=== PATIENT | male | born 1955 | race Two or more races ===

== ENCOUNTER 2018-06-19 17:51 | Inpatient (IN) | payer MEDICAID ==
[~2018-06-19] VITALS: Ht 177.8 cm; Wt 69.9 kg
[~2018-06-19 17:51] MED LIST: ASPI-1159 PO; ATOR20TA65 PO; CARV3.1242 PO; FURO-151 PO; LISI10TA5 PO; NICO-645 TD; TAMS-11 PO
[2018-06-19 18:54] LABS: CHLORIDE 106 mEq/L (98-107)
[2018-06-19 19:00] LABS: BASOPHILS % 0.8 % (0.0-2.0); EOSINOPHILS % 0.5 % (0.0-5.0); HEMATOCRIT. 43.6 % (42.0-52.0); LYMPHOCYTES % 30.8 % (20.0-50.0); MEAN CORPUSCULAR HEMOGLOBIN 27.6 pg (28.0-32.0); MEAN CORPUSCULAR VOLUME 85.9 fL (80.0-94.0); MEAN PLATELET VOLUME 9.3 fl (7.4-10.4); NEUTROPHILS % 58.9 % (40.0-76.0); PLATELET 229 x1000/uL (130-400); RED BLOOD CELL COUNT 5.08 mill/uL (4.7-6.1); RED CELL DISTRIBUTION WIDTH 15.8 % (11.6-14.6)
[2018-06-19 19:09] LABS: CLARITY URINE CLEAR (CLEAR); COLOR URINE YELLOW (YELLOW); KETONES URINE NEGATIVE (NEGATIVE); LEUKOCYTE ESTERASE URINE 3+ (NEGATIVE); NITRITE URINE NEGATIVE (NEGATIVE); OCCULT BLOOD URINE NEGATIVE (NEGATIVE); PH URINE 6.5 (4.5-8.0); PROTEIN URINE NEGATIVE (NEGATIVE); SPECIFIC GRAVITY URINE 1.008 (1.005-1.030)
[2018-06-19] MEDS ORDERED: NITROGLYCERIN 0.4MG TABLET SL SL ONE (21:00)
[2018-06-19] MEDS ORDERED: CEFTRIAXONE 1 G PREMIX 50 ML IV ONE (22:30)
[2018-06-19] MEDS ORDERED: ACETAMINOPHEN 325MG TABLET PO PRN (23:30)
[2018-06-19] MEDS ORDERED: HYDROCODONE/ACETAMINOPHEN 5/325MG TABLET PO PRN (23:30)
[2018-06-19] MEDS ORDERED: CLONIDINE 0.1MG TABLET PO PRN (23:30)
[2018-06-19] MEDS ORDERED: ONDANSETRON HCL 4MG/2ML INJ IV PRN (23:30)
[2018-06-19] MEDS ORDERED: IPRATROPIUM/ALBUTEROL 0.5-3(2.5)MG/3ML NEB INH PRN (23:30)
[2018-06-19] MEDS ORDERED: DOCUSATE SODIUM 100MG CAPSULE PO PRN (23:30)
[2018-06-20] VITALS (8 sets, daily range): BP systolic 101–143; BP diastolic 68–109
[2018-06-20 06:20] LABS: BASOPHILS % 0.6 % (0.0-2.0); EOSINOPHILS % 0.6 % (0.0-5.0); HEMATOCRIT. 40.6 % (42.0-52.0); HEMOGLOBIN. 12.9 g/dL (14.0-18.0); LYMPHOCYTES % 23.3 % (20.0-50.0); MEAN CORPUSCULAR HEMOGLOBIN 27.2 pg (28.0-32.0); MEAN CORPUSCULAR VOLUME 85.7 fL (80.0-94.0); MEAN PLATELET VOLUME 9.6 fl (7.4-10.4); MONOCYTES % 13.7 % (2.0-8.0); NEUTROPHILS % 61.8 % (40.0-76.0); PLATELET 222 x1000/uL (130-400); RED BLOOD CELL COUNT 4.74 mill/uL (4.7-6.1); RED CELL DISTRIBUTION WIDTH 15.5 % (11.6-14.6)
[2018-06-20 07:38] LABS: BG CARBOXYHEMOGLOBIN 1.2 % (0.5-1.5); BG DEOXYHEMOGLOBIN 7.4 % (0.0-5.0); BG FRACTION INSPIRED OXYGEN 21; BG METHEMOGLOBIN 0.3 % (0.0-1.5); BG OXYGEN SATURATION 92.5 % (92.0-98.5); BG OXYHEMOGLOBIN 91.1 % (94.0-97.0); BG PO2 67.1 mmHg (75.0-100.0); BG SAMPLE SITE RIGHT BRACHIAL; BG TOTAL HEMOGLOBIN 14.3 g/dL (12.0-18.0); BG VENT MODE ROOM AIR
[2018-06-20] MEDS ORDERED: PNEUMOCOCCAL 23-VAL P-SAC VAC 0.5 ML IM ONE (08:00)
[2018-06-20] MEDS ORDERED: HEPARIN 5000 UNITS/ML VIAL SUBCUT SCH (09:00)
[2018-06-20] MEDS ORDERED: CEFTRIAXONE 1 G PREMIX 50 ML IV SCH (09:00)
[2018-06-20 09:24] LABS: BG BASE EXCESS -0.3 mmol/L (-2.0-2.0); BG CARBOXYHEMOGLOBIN 1.2 % (0.5-1.5); BG DEOXYHEMOGLOBIN 9.6 % (0.0-5.0); BG FRACTION INSPIRED OXYGEN 21; BG HCO3 ACT 22.7 mmol/L (22.0-26.0); BG METHEMOGLOBIN 0.3 % (0.0-1.5); BG OXYGEN SATURATION 90.3 % (92.0-98.5); BG OXYHEMOGLOBIN 88.9 % (94.0-97.0); BG PCO2 32.4 mmHg (35.0-45.0); BG PH 7.463 (7.350-7.450); BG PO2 58.1 mmHg (75.0-100.0); BG SAMPLE SITE RIGHT RADIAL; BG TOTAL HEMOGLOBIN 13.8 g/dL (12.0-18.0); BG VENT MODE ROOM AIR
[2018-06-20] MEDS: ASPIRIN 81MG EC TABLET PO SCH (09:48)
[2018-06-20] MEDS ORDERED: INFLUENZA VIRUS VACCINE(AFLURIA) 0.5ML SYR IM ONE (10:00)
[2018-06-20] MEDS ORDERED: FUROSEMIDE 40MG/4ML VIAL IVP SCH (11:00)
[2018-06-20] MEDS ORDERED: LISINOPRIL 10MG TABLET PO SCH (11:00)
[2018-06-20] MEDS ORDERED: LOSARTAN POTASSIUM 25 MG TABLET PO SCH (12:00)
[2018-06-20] MEDS ORDERED: DILTIAZEM HCL 5MG/ML 5ML VIAL IV PRN (12:00)
[2018-06-20] MEDS ORDERED: CEFTRIAXONE 1,000 MG in DEXTROSE 5% WATER 50 ML IV SCH (12:00)
[2018-06-20] MEDS: DILTIAZEM HCL 60MG TABLET PO SCH ×2 (12:00→17:27)
[2018-06-20] MEDS: FOLIC ACID/VITAMIN B COMP W-C TABLET PO SCH (12:52)
[2018-06-20] MEDS: POTASSIUM CHLORIDE 20MEQ TABLET SR PO SCH ×2 (12:53→17:27)
[2018-06-20] MEDS: TAMSULOSIN HCL 0.4MG SR CAPSULE PO SCH (12:53)
[2018-06-20] MEDS: THIAMINE HCL 100MG TABLET PO SCH (12:55)
[2018-06-20] MEDS: ASPIRIN 81MG TABLET PO SCH (13:47)
[2018-06-20] MEDS: ENOXAPARIN 80MG/0.8ML SYR SUBCUT SCH ×2 (13:48→22:48)
[2018-06-20] MEDS ORDERED: LIDOCAINE HCL/PF 1% 2ML VIAL ONE (14:39)
[2018-06-20] MEDS: FUROSEMIDE 40MG/4ML VIAL IVP SCH (17:26)
[2018-06-20 18:47] LABS: *AMPHETAMINES SCREEN URINE PRESUMTIVE POSITIVE (NEGATIVE); *BARBITURATES SCREEN URINE NEGATIVE (NEGATIVE)
[2018-06-20 18:48] LABS: *BENZODIAZEPINES SCREEN URINE NEGATIVE (NEGATIVE); *COCAINE SCREEN URINE PRESUMTIVE POSITIVE (NEGATIVE); CANNABINOID URINE SCREEN PRESUMTIVE POSITIVE (NEGATIVE); METHADONE URINE SCREEN NEGATIVE (NEGATIVE); OPIATES URINE SCREEN NEGATIVE (NEGATIVE)
[2018-06-20 18:49] LABS: PHENCYCLIDINE URINE SCREEN NEGATIVE (NEGATIVE)
[2018-06-20] MEDS: ATORVASTATIN CALCIUM 20MG TABLET PO SCH (21:05)
[2018-06-20] MEDS: CEFTRIAXONE 1,000 MG in DEXTROSE 5% WATER 50 ML IV SCH (21:06)
[2018-06-20 21:43] LABS: INR 1.2; PROTHROMBIN TIME 12.1 sec (9.1-11.1)
[2018-06-20 21:53] LABS: TOTAL IRON BINDING CAPACITY 345 ug/dL (250-450)
[2018-06-20 22:09] LABS: FERRITIN 310 ng/mL (22-322); PROSTRATE SPECIFIC AG TOTAL 3.31 ng/mL (0.0-4.0)
[2018-06-20 22:17] LABS: VITAMIN B12 SERUM 729 pg/mL (211-911)
[2018-06-20 22:20] LABS: FOLIC ACID (FOLATE) SERUM > 20.00 ng/mL (>5.38)
[2018-06-21] VITALS (7 sets, daily range): BP systolic 99–143; BP diastolic 66–103
[2018-06-21] MEDS: DILTIAZEM HCL 60MG TABLET PO SCH ×5 (01:14→23:50)
[2018-06-21] MEDS: FUROSEMIDE 40MG/4ML VIAL IVP SCH ×2 (06:25→17:49)
[2018-06-21 06:58] LABS: BASOPHILS % 0.3 % (0.0-2.0); EOSINOPHILS % 1.1 % (0.0-5.0); HEMATOCRIT. 41.9 % (42.0-52.0); HEMOGLOBIN. 13.3 g/dL (14.0-18.0); LYMPHOCYTES % 23.3 % (20.0-50.0); MEAN CORPUSCULAR HEMOGLOBIN 27.3 pg (28.0-32.0); MEAN CORPUSCULAR VOLUME 85.6 fL (80.0-94.0); MEAN PLATELET VOLUME 9.5 fl (7.4-10.4); NEUTROPHILS % 65.3 % (40.0-76.0); PLATELET 218 x1000/uL (130-400); RED BLOOD CELL COUNT 4.89 mill/uL (4.7-6.1); RED CELL DISTRIBUTION WIDTH 15.6 % (11.6-14.6)
[2018-06-21 07:31] LABS: CREATINE KINASE MB FRACTION 3.8 ng/mL (0.5-3.6)
[2018-06-21] MEDS: POTASSIUM CHLORIDE 20MEQ TABLET SR PO SCH ×2 (10:11→17:49)
[2018-06-21] MEDS: FOLIC ACID/VITAMIN B COMP W-C TABLET PO SCH (10:11)
[2018-06-21] MEDS: TAMSULOSIN HCL 0.4MG SR CAPSULE PO SCH (10:11)
[2018-06-21] MEDS: ENOXAPARIN 80MG/0.8ML SYR SUBCUT SCH ×2 (10:11→21:32)
[2018-06-21] MEDS: THIAMINE HCL 100MG TABLET PO SCH (10:12)
[2018-06-21] MEDS: ASPIRIN 81MG TABLET PO SCH (10:12)
[2018-06-21] MEDS: ASPIRIN 81MG EC TABLET PO SCH (10:12)
[2018-06-21] MEDS: CEFTRIAXONE 1,000 MG in DEXTROSE 5% WATER 50 ML IV SCH (21:32)
[2018-06-21] MEDS: ATORVASTATIN CALCIUM 20MG TABLET PO SCH (21:39)
[2018-06-22] VITALS: BP 109/73
[2018-06-22 04:00] VITALS: BP 130/73
[2018-06-22] MEDS: FUROSEMIDE 40MG/4ML VIAL IVP SCH ×2 (06:08→16:32)
[2018-06-22] MEDS: DILTIAZEM HCL 30MG TABLET PO SCH ×3 (06:30→16:31)
[2018-06-22 06:46] LABS: BASOPHILS % 0.5 % (0.0-2.0); EOSINOPHILS % 1.1 % (0.0-5.0); HEMATOCRIT. 40.2 % (42.0-52.0); HEMOGLOBIN. 13.1 g/dL (14.0-18.0); LYMPHOCYTES % 22.6 % (20.0-50.0); MEAN CORPUSCULAR HEMOGLOBIN 27.7 pg (28.0-32.0); MEAN CORPUSCULAR VOLUME 85.1 fL (80.0-94.0); MEAN PLATELET VOLUME 9.7 fl (7.4-10.4); MONOCYTES % 11.4 % (2.0-8.0); NEUTROPHILS % 64.4 % (40.0-76.0); PLATELET 209 x1000/uL (130-400); RED BLOOD CELL COUNT 4.73 mill/uL (4.7-6.1); RED CELL DISTRIBUTION WIDTH 15.1 % (11.6-14.6)
[2018-06-22] MEDS: ENOXAPARIN 80MG/0.8ML SYR SUBCUT SCH ×2 (08:59→22:06)
[2018-06-22] MEDS: TAMSULOSIN HCL 0.4MG SR CAPSULE PO SCH (08:59)
[2018-06-22] MEDS: ASPIRIN 81MG TABLET PO SCH (08:59)
[2018-06-22] MEDS: THIAMINE HCL 100MG TABLET PO SCH (09:00)
[2018-06-22] MEDS: POTASSIUM CHLORIDE 20MEQ TABLET SR PO SCH ×2 (09:00→16:31)
[2018-06-22] MEDS: FOLIC ACID/VITAMIN B COMP W-C TABLET PO SCH (09:00)
[2018-06-22 12:00] VITALS: BP_SYST 109; BP_SYST 144; BP_SYST 169; BP_DIAS 76; BP_DIAS 91; BP_DIAS 98
[2018-06-22] MEDS: CLOPIDOGREL 75MG TABLET PO SCH (12:18)
[2018-06-22 16:00] VITALS: BP 100/70
[2018-06-22 20:00] VITALS: BP 136/78
[2018-06-22] MEDS: ATORVASTATIN CALCIUM 20MG TABLET PO SCH (22:06)
[2018-06-23] VITALS: BP 111/72
[2018-06-23 04:00] VITALS: BP 118/77
[2018-06-23] MEDS: DILTIAZEM HCL 30MG TABLET PO SCH ×2 (06:00)
[2018-06-23 06:26] LABS: BASOPHILS % 0.4 % (0.0-2.0); HEMATOCRIT. 42.5 % (42.0-52.0); HEMOGLOBIN. 13.7 g/dL (14.0-18.0); LYMPHOCYTES % 25.7 % (20.0-50.0); MEAN CORPUSCULAR HEMOGLOBIN 27.3 pg (28.0-32.0); MEAN CORPUSCULAR VOLUME 84.6 fL (80.0-94.0); MEAN PLATELET VOLUME 9.5 fl (7.4-10.4); MONOCYTES % 13.7 % (2.0-8.0); NEUTROPHILS % 59.2 % (40.0-76.0); PLATELET 232 x1000/uL (130-400); RED BLOOD CELL COUNT 5.03 mill/uL (4.7-6.1); RED CELL DISTRIBUTION WIDTH 15.6 % (11.6-14.6)
[2018-06-23] MEDS: FUROSEMIDE 40MG/4ML VIAL IVP SCH ×2 (06:55→18:19)
[2018-06-23 08:00] VITALS: BP 100/63
[2018-06-23] MEDS: TAMSULOSIN HCL 0.4MG SR CAPSULE PO SCH (09:00)
[2018-06-23] MEDS: POTASSIUM CHLORIDE 20MEQ TABLET SR PO SCH ×2 (10:29→18:19)
[2018-06-23] MEDS: ENOXAPARIN 80MG/0.8ML SYR SUBCUT SCH ×2 (10:29→21:35)
[2018-06-23] MEDS: FOLIC ACID/VITAMIN B COMP W-C TABLET PO SCH (10:29)
[2018-06-23] MEDS: CLOPIDOGREL 75MG TABLET PO SCH (10:29)
[2018-06-23] MEDS: THIAMINE HCL 100MG TABLET PO SCH (10:30)
[2018-06-23] MEDS: ASPIRIN 81MG TABLET PO SCH (10:30)
[2018-06-23] MEDS ORDERED: LEVOFLOXACIN 250MG TABLET PO SCH (11:00)
[2018-06-23] MEDS: DILTIAZEM HCL 120MG CAPSULE CD 24HR PO SCH ×2 (11:30→21:36)
[2018-06-23] MEDS ORDERED: DILTIAZEM HCL 180MG CAPSULE CD 24HR PO SCH (11:30)
[2018-06-23 12:00] VITALS: BP 100/75
[2018-06-23 16:00] VITALS: BP 121/83
[2018-06-23 20:00] VITALS: BP 120/75
[2018-06-23] MEDS: ATORVASTATIN CALCIUM 20MG TABLET PO SCH (21:36)
[2018-06-24] VITALS: BP 116/83
[2018-06-24 04:00] VITALS: BP_SYST 127; BP_SYST 133; BP_SYST 136; BP_DIAS 88; BP_DIAS 93; BP_DIAS 98
[2018-06-24] MEDS: FUROSEMIDE 40MG/4ML VIAL IVP SCH (06:45)
[2018-06-24 07:20] LABS: BASOPHILS % 0.4 % (0.0-2.0); EOSINOPHILS % 0.9 % (0.0-5.0); HEMATOCRIT. 44.7 % (42.0-52.0); HEMOGLOBIN. 14.6 g/dL (14.0-18.0); LYMPHOCYTES % 23.6 % (20.0-50.0); MEAN CORPUSCULAR HEMOGLOBIN 27.6 pg (28.0-32.0); MEAN CORPUSCULAR VOLUME 84.9 fL (80.0-94.0); MEAN PLATELET VOLUME 9.3 fl (7.4-10.4); MONOCYTES % 14.3 % (2.0-8.0); NEUTROPHILS % 60.8 % (40.0-76.0); PLATELET 242 x1000/uL (130-400); RED BLOOD CELL COUNT 5.27 mill/uL (4.7-6.1); RED CELL DISTRIBUTION WIDTH 15.6 % (11.6-14.6)
[2018-06-24 08:00] VITALS: BP 183/63
[2018-06-24] MEDS: CLOPIDOGREL 75MG TABLET PO SCH (08:52)
[2018-06-24] MEDS: ASPIRIN 81MG TABLET PO SCH (08:52)
[2018-06-24] MEDS: TAMSULOSIN HCL 0.4MG SR CAPSULE PO SCH (08:52)
[2018-06-24] MEDS: DILTIAZEM HCL 120MG CAPSULE CD 24HR PO SCH (08:52)
[2018-06-24] MEDS: THIAMINE HCL 100MG TABLET PO SCH (08:52)
[2018-06-24] MEDS: ENOXAPARIN 80MG/0.8ML SYR SUBCUT SCH (08:53)
[2018-06-24] MEDS: POTASSIUM CHLORIDE 20MEQ TABLET SR PO SCH (09:00)
[2018-06-24] MEDS: FOLIC ACID/VITAMIN B COMP W-C TABLET PO SCH (09:00)
[2018-06-24 12:00] VITALS: BP 106/81
[2018-06-24] MEDS ORDERED: DILT120C88 PO (15:28)
[2018-06-24] MEDS ORDERED: CLOP75TA16 PO (15:28)
[2018-06-24] MEDS ORDERED: ATOR20TA PO (15:28)
[2018-06-24 15:57] VITALS: BP 106/81
== END 2018-06-24 19:00 | disposition home or self-care (01) | DRG 46 ==
LOC: ER 17:51 → EDBEDREQ 22:38 → CANRESERV 23:18 → ENRESERV 23:18 → EDBEDREQTM 23:51 → EDBEDREQSVC 23:51 → ENRESERV 23:55 → 8WST 06-20 00:44
PROVIDERS: ADMIT Internal Medicine; ATTEND Internal Medicine
DX: I65.21 Occlusion and stenosis of right carotid artery (principal); J96.01 Acute respiratory failure with hypoxia; I50.23 Acute on chronic systolic (congestive) heart failure; G90.8 Other disorders of autonomic nervous system; D64.9 Anemia, unspecified; C61 Malignant neoplasm of prostate; I27.20 Pulmonary hypertension, unspecified; I42.0 Dilated cardiomyopathy; I66.01 Occlusion and stenosis of right middle cerebral artery; I48.1 Persistent atrial fibrillation; I13.0 Hypertensive heart and chronic kidney disease with heart failure and stage 1 through stage 4 chronic kidney disease, or unspecified chronic kidney disease; D72.821 Monocytosis (symptomatic); E78.00 Pure hypercholesterolemia, unspecified; F19.10 Other psychoactive substance abuse, uncomplicated; I25.2 Old myocardial infarction; N18.9 Chronic kidney disease, unspecified; N39.0 Urinary tract infection, site not specified; I25.5 Ischemic cardiomyopathy; I25.10 Atherosclerotic heart disease of native coronary artery without angina pectoris; Z95.1 Presence of aortocoronary bypass graft; N40.0 Benign prostatic hyperplasia without lower urinary tract symptoms; I44.7 Left bundle-branch block, unspecified; F10.10 Alcohol abuse, uncomplicated; F14.10 Cocaine abuse, uncomplicated; F17.210 Nicotine dependence, cigarettes, uncomplicated; Z79.82 Long term (current) use of aspirin; Z91.19 Patient's noncompliance with other medical treatment and regimen; I69.354 Hemiplegia and hemiparesis following cerebral infarction affecting left non-dominant side; Z91.14 Patient's other noncompliance with medication regimen
CPT/HCPCS: 36415; 36600; 70544; 70547; 70553; 71045; 80048; 80061; 80305; 80320; 82140; 82375; 82550; 82553; 82607; 82728; 82746; 82805; 83036; 83540; 83550; 83735; 83880; 84153; 84443; 84484; 85044; 85379; 87077; 87186; 90686; 90732; 92523; 93005; 93306; 93880; 96365; 97116; 97162; 97166; 97530; 99285; J0696; J1644; J1650; J1940; J3490; J7050; J7060; G0103; G0480